=== PATIENT | male | born 1965 | race Caucasian/White ===

== ENCOUNTER 2019-05-29 14:00 | Inpatient (IN) | payer BC, OTHER ==
--- NOTE | 2019-05-29 14:08 | PDOC ---
Rapid Medical Evaluation Chief Complaint: Alcohol intoxication Time Seen by Provider: 05/29/19 14:06 Medical Evaluation: 05/29/19 14:07 I have performed a brief in-person evaluation of this patient. The patient presents with a chief complaint of: request for detox Pertinent physical exam findings:stable and in NAD, non-focal I have ordered the following:labs The patient will proceed to the ED for further evaluation. Discharge Disposition - Discharge Dispostion Condition at time of disposition: Stable - Referrals - Patient Instructions - Post Discharge Activity
[2019-05-29 14:53] LABS: BASO % 0.6 % (0-2.0); EOS % 2.3 % (0-4.5); HEMOGLOBIN 14.9 GM/dL (11.7-16.9); LYMPH % 36.4 % (8-40); MCH 31.7 pg (25.7-33.7); MCHC 33.2 g/dl (32.0-35.9); MEAN CELL VOLUME 95.5 fl (80-96); MEAN PLT VOLUME 9.7 fl (7.5-11.1); MONO % 8.6 % (3.8-10.2); NEUT % 52.1 % (42.8-82.8); PLATELET COUNT 189 K/MM3 (134-434); RBC 4.71 M/mm3 (4.00-5.60); RDW 13.9 % (11.9-15.9); WHITE BLOOD COUNT 5.4 K/mm3 (4.0-10.0)
[2019-05-29 14:57] LABS: PH,URINE 5.5 (5.0-8.0); URINE APPEARANCE CLEAR; URINE BILIRUBIN NEGATIVE (NEGATIVE); URINE COLOR YELLOW; URINE GLUCOSE (UA) NEGATIVE (NEGATIVE); URINE KETONE NEGATIVE (NEGATIVE); URINE LEUK ESTERASE NEGATIVE (NEGATIVE); URINE NITRITE NEGATIVE (NEGATIVE); URINE PROTEIN NEGATIVE (NEGATIVE); URINE UROBILINOGEN 0.2 mg/dL (0.2-1.0)
[2019-05-29 15:13] LABS: COCAINE, UR NEGATIVE ng/ml (CUTOFF=300); METHADONE, UR NEGATIVE ng/ml (CUTOFF=300); OPIATES, URI NEGATIVE ng/ml (CUTOFF=300); PHENCYCLIDINE,URINE NEGATIVE ng/ml (CUTOFF=25); URINE AMPHETAMINES NEGATIVE ng/ml (CUTOFF=500); URINE BARBITURATES NEGATIVE ng/ml (CUTOFF=200); URINE BENZODIAZEPINES NEGATIVE ng/ml (CUTOFF=200)
[2019-05-29] MEDS ORDERED: chlordiazePOXIDE HCL 25 MG CAPSULE PO ONE (15:22)
[2019-05-29] MEDS ORDERED: SODIUM CHLORIDE 1,000 ML IV STA (15:24)
[2019-05-29] MEDS ORDERED: chlordiazePOXIDE HCL 25 MG CAPSULE ONE ×2 (15:28→22:45)
[2019-05-29] MEDS ORDERED: THIAMINE HCL IVPB SCH (15:30)
[2019-05-29] MEDS ORDERED: MULTIVITAMINS (DAILY MVI) TABLET (FP) PO SCH (15:30)
[2019-05-29] MEDS ORDERED: SODIUM CHLORIDE IVPB SCH (15:30)
[2019-05-29] MEDS ORDERED: FOLIC ACID IVPB SCH (15:30)
[2019-05-29] MEDS ORDERED: [UNRECOGNIZED DRUG - OTHER] IVPB SCH (15:30)
--- NOTE | 2019-05-29 15:35 | PDOC ---
History of Present Illness - General Chief Complaint: Alcohol intoxication Stated Complaint: Alcohol intoxication Time Seen by Provider: 05/29/19 14:06 History Source: Patient, Significant Other - History of Present Illness Initial Comments: 05/29/19 15:29 53 yo M PMH of Alcohol abuse and Bipolar II ( on lamictal) presents to ED for Detox. Pt states his last drink was approx 2 hours ago. He states he usually has 1 pint each day for a few weeks. He states he abused alcohol in the past and when he has detoxed he has had seizures. He was sent to [facility] from his psychiatrist , Dr. Trujillo for detox with hopes to go to [facility] for [facility] after detox. Pt feels agitated and has a headache that started within the past hour. he also endorses chest tightness. denies hallucinations. 05/29/19 15:41 Past History - Past Medical History Allergies/Adverse Reactions: Allergies Allergy/AdvReac Type Severity Reaction Status Date / Time No Known Allergies Allergy Verified 05/29/19 14:08 Home Medications: Ambulatory Orders Lamotrigine [Lamictal -] 200 mg PO HS 05/29/19 COPD: No Other medical history: seizure - Immunization History Immunization Up to Date: No - Psycho Social/Smoking Cessation Hx Smoking History: Former smoker Have you smoked in the past 12 months: No Information on smoking cessation initiated: No Hx Alcohol Use: No Drug/Substance Use Hx: No Review of Systems - Review of Systems Constitutional: No: Chills, Fever Respiratory: No: Shortness of Breath Cardiac (ROS): Yes: Chest Tightness. No: Chest Pain, Irregular Heart Rate ABD/GI: No: Constipated, Diarrhea, Nausea Neurological: Yes: Headache *Physical Exam - Vital Signs Last Vital Signs Temp Pulse Resp BP Pulse Ox 97.6 F 75 16 118/74 95 05/29/19 14:04 05/29/19 14:04 05/29/19 14:04 05/29/19 14:04 05/29/19 14:04 - Physical Exam General Appearance: Yes: Nourished, Appropriately Dressed, Intoxicated. No: Apparent Distress HEENT: positive: Other (tongue fasciculations) Respiratory/Chest: positive: Lungs Clear, Normal Breath Sounds. negative: Respiratory Distress Cardiovascular: positive: Regular Rhythm, Regular Rate, S1, S2 Gastrointestinal/Abdominal: positive: Normal Bowel Sounds. negative: Tender, Soft, Distended Integumentary: positive: Normal Color, Dry, Warm ED Treatment Course - LABORATORY CBC & Chemistry Diagram: 05/29/19 14:39 05/29/19 14:39 - ADDITIONAL ORDERS Additional order review: Laboratory Results 05/29/19 05/29/19 05/29/19 14:39 14:39 14:39 Urine Color Yellow Urine Appearance Clear Urine pH 5.5 Ur Specific [place] 1.006 L Urine Protein Negative Urine Glucose (UA) Negative Urine Ketones Negative Urine Blood Negative Urine Nitrite Negative Urine Bilirubin Negative Urine Urobilinogen 0.2 Ur Leukocyte Esterase Negative Opiates Screen Negative Methadone Screen Negative Barbiturate Screen Negative Phencyclidine Screen Negative Ur Amphetamines Screen Negative MDMA (Ecstasy) Screen Negative Benzodiazepines Screen Negative Cocaine Screen Negative U Marijuana (THC) Screen Negative Alcohol, Quantitative 282.6 H 05/29/19 14:39 RBC 4.71 MCV 95.5 MCHC 33.2 RDW 13.9 MPV 9.7 Neutrophils % 52.1 Lymphocytes % 36.4 Monocytes % 8.6 Eosinophils % 2.3 Basophils % 0.6 - Medications Given in the ED: ED Medications Discontinued Medications Generic Name Dose Route Start Last Admin Trade Name Freq PRN Reason Stop Dose Admin Sodium Chloride 1,000 mls @ 1,000 mls/hr 05/29/19 15:24 05/29/19 15:27 Normal Saline - IV 05/29/19 16:23 1,000 mls/hr ASDIR STA Administration Medical Decision Making - Medical Decision Making 05/29/19 15:50 53 yo M presenting for alcohol detox -[facility] -Librium 500 PO -IV fluids, Mg, thiamine, folate, multivitamin -CBC, CMP -Utox, Alcohol level 05/29/19 16:31 - will start mod librium protocol for detox Discharge - Discharge Information Condition: Stable - Follow up/Referral Referrals: Erendira Hurst [Primary Care Provider] - - Patient Discharge Instructions - Post Discharge Activity
[2019-05-29 15:52] LABS: ALBUMIN 4.1 g/dl (3.4-5.0); BILIRUBIN,TOTAL 0.4 mg/dL (0.2-1); CREATININE 0.7 mg/dL (0.55-1.3); POTASSIUM 5.1 mmol/L (3.5-5.1); TOT PROT 7.3 g/dl (6.4-8.2)
[2019-05-29] MEDS ORDERED: chlordiazePOXIDE HCL 10 MG CAPSULE PO PRN (16:15)
[2019-05-29] MEDS ORDERED: THIAMINE HCL 100 MG TABLET (FP) PO ONE (16:18)
[2019-05-29] MEDS ORDERED: FOLIC ACID 1 MG TABLET (FP) PO ONE (16:18)
[2019-05-29] MEDS ORDERED: FOLIC ACID INJECTION - 1 MG, THIAMINE HCL 100 MG, MULTIVIT INJECTION ADULT 10 ML in SOD... IVPB ONE ×2 (16:30→20:47)
--- NOTE | 2019-05-29 18:32 | PDOC ---
Documentation entered by Srinath Starr SCRIBE, acting as scribe for Darrion Silver MD. Darrion Silver MD: This documentation has been prepared by the Matty hager Nirvannie, SCRIBE, under my direction and personally reviewed by me in its entirety. I confirm that the documentation accurately reflects all work, treatment, procedures, and medical decision making performed by me. Attending Attestation - Resident Resident Name: Doug - ED Attending Attestation I have performed the following: I have examined & evaluated the patient, The case was reviewed & discussed with the resident, I agree w/resident's findings & plan, Exceptions are as noted - HPI HPI: 05/29/19 15:47 The patient is a 53 year old male, with a significant past medical history of alcohol abuse c/b alcohol withdrawal seizures, and bipolar disorder, who presents to the emergency department for alcohol detox. As per patient, he was advised by his PCP to report to the ED for detox. As per patient he normally drinks a pint a day and his last drink was 2 hours ago. He states he feels shaky at this time. He denies any SI or HI. He denies AH/VH. He denies any recent fevers, chills, headache or dizziness. He denies any recent nausea, vomiting, diarrhea or constipation. He denies any recent chest pain or shortness of breath. He denies any recent dysuria, frequency, urgency or hematuria. Allergies: NKDA Primary Care Physician: Dr. Hurst - Physicial Exam PE: 05/29/19 17:50 agree with resident exam - Medical Decision Making 05/29/19 17:52 53yo M hx etoh abuse, bipolar d/o presents to the ED for detox Pt reporting feeling shaky, had mild tongue fasiculations and was given librium 50mg Last drink 3 hours ago [facility] Labs obtained in case pt requires admission for etoh withdrawal prior to availability of a bed at detox Heart Score/ECG Review #1 05/29/19 18:31 EKG read and int by me: NSR, rate 70, artifact in lead V3, otherwise, no LUCRECIA or TWI
--- NOTE | 2019-05-29 21:33 | HP ---
CHIEF COMPLAINT: intoxication/ withdrawal PCP: Dr Sanders HISTORY OF PRESENT ILLNESS: 53 year old male with past medical history of bipolar disorder (on lamotrigine 200mg HS) and alcohol abuse disorder presents to the ED for alcohol detoxification. Last drink was around 12 pm but does not remember how much he drank today (usually drink a pint of alcohol daily). Pt was sober for 2.5 years and attributes drinking again due to his mental health. Denies any recent traumatic events that provoked his relapse. Pt has difficulty sleeping, loss of interest, guilty consciousness, decreased energy, increased appetite, suicidal thoughts (no plan and no intent) for years. However, pt currently does not have any suicidal thoughts, plan or intent. Pt hopes to have go for inpatient psych at [facility] after completing his detoxification course. Pt endorses headaches, heart palpitations, mild shortness of breath and burning pain in his lower extremities. Denies tremors, visual/auditory hallucinations, loss of consciousness, head trauma, chest pain, dizziness, nausea, vomiting and diarrhea. ER course was notable for: (1) CBC unremarkable, CMP remarkable for AST 61, ALT 68 (2) UA neg, Utox positive for alcohol level 282.6 (3)librium protocol started Recent Travel: denies PAST MEDICAL HISTORY: none PSYCH HISTORY: bipolar II PAST SURGICAL HISTORY: none Social History: Smoking:Smoked 1 pack a day since the age 14 (for 39 years). Quit 2 months ago Alcohol: as above Drugs: denies Allergies No Known Allergies Allergy (Verified 05/29/19 14:08) HOME MEDICATIONS: Home Medications Medication Instructions Recorded Lamotrigine [Lamictal -] 200 mg PO HS 05/29/19 REVIEW OF SYSTEMS CONSTITUTIONAL: Absent: fever, chills, diaphoresis, generalized weakness, malaise, loss of appetite, weight change HEENT: Absent: rhinorrhea, nasal congestion, throat pain, throat swelling, difficulty swallowing, mouth swelling, ear pain, eye pain, visual changes CARDIOVASCULAR: Absent: chest pain, syncope, palpitations, irregular heart rate, lightheadedness , peripheral edema RESPIRATORY: Absent: cough, shortness of breath, dyspnea with exertion, orthopnea, wheezing, stridor, hemoptysis GASTROINTESTINAL: Absent: abdominal pain, abdominal distension, nausea, vomiting, diarrhea, constipation, melena, hematochezia GENITOURINARY: Absent: dysuria, frequency, urgency, hesitancy, hematuria, flank pain, genital pain MUSCULOSKELETAL: Absent: myalgia, arthralgia, joint swelling, back pain, neck pain SKIN: Absent: rash, itching, pallor HEMATOLOGIC/IMMUNOLOGIC: Absent: easy bleeding, easy bruising, lymphadenopathy, frequent infections ENDOCRINE: Absent: unexplained weight gain, unexplained weight loss, heat intolerance, cold intolerance NEUROLOGIC: Absent: headache, focal weakness or paresthesias, dizziness, unsteady gait, seizure, mental status changes, bladder or bowel incontinence PSYCHIATRIC: depressed mood Absent: anxiety, suicidal or homicidal ideation, hallucinations. PHYSICAL EXAMINATION Vital Signs - 24 hr 05/29/19 05/29/19 14:04 19:02 Temperature 97.6 F Pulse Rate 75 Pulse Rate [ 88 Right Radial] Respiratory 16 18 Rate Blood Pressure 118/74 Blood Pressure 100/45 L [Right Arm] O2 Sat by Pulse 95 97 Oximetry (%) GENERAL: Awake, alert, and fully oriented, no acute distress. HEAD: Normal with no signs of trauma. EYES: Pupils equal, round and reactive to light, extraocular movements intact, sclera anicteric, conjunctiva clear. No lid lag. EARS, NOSE, THROAT: oropharynx clear without exudates. Moist mucous membranes. NECK: Normal range of motion, supple without lymphadenopathy, JVD, or masses. LUNGS: Breath sounds equal, clear to auscultation bilaterally. No wheezes, and no crackles. No accessory muscle use. HEART: Regular rate and rhythm, normal S1 and S2 without murmur, rub or gallop. ABDOMEN: Soft, nontender, not distended, normoactive bowel sounds, no guarding, no rebound, no masses. No hepatomegaly or splenomegaly. MUSCULOSKELETAL: Normal range of motion at all joints. No bony deformities or tenderness. No CVA tenderness. UPPER EXTREMITIES: 2+ pulses, warm, well-perfused. No cyanosis. No clubbing. No peripheral edema. LOWER EXTREMITIES: 2+ pulses, warm, well-perfused. No calf tenderness. No peripheral edema. NEUROLOGICAL: Cranial nerves II-XII intact. Normal speech. motor 5/5 in all muscle groups and sensation intact. No tremors PSYCHIATRIC: Cooperative. Good eye contact. Appropriate mood and affect. SKIN: Warm, dry, normal turgor, seborrheic keratosis on back. Laboratory Results - last 24 hr 05/29/19 05/29/19 05/29/19 14:39 14:39 14:39 WBC 5.4 RBC 4.71 Hgb 14.9 Hct 45.0 MCV 95.5 MCH 31.7 MCHC 33.2 RDW 13.9 Plt Count 189 MPV 9.7 Absolute Neuts (auto) 2.8 Neutrophils % 52.1 Lymphocytes % 36.4 Monocytes % 8.6 Eosinophils % 2.3 Basophils % 0.6 Nucleated RBC % 0 Sodium Potassium Chloride Carbon Dioxide Anion Gap BUN Creatinine Est GFR (CKD-EPI)AfAm Est GFR (CKD-EPI)NonAf Random Glucose Calcium Total Bilirubin AST ALT Alkaline Phosphatase Total Protein Albumin Urine Color Urine Appearance Urine pH Ur Specific [place] Urine Protein Urine Glucose (UA) Urine Ketones Urine Blood Urine Nitrite Urine Bilirubin Urine Urobilinogen Ur Leukocyte Esterase Opiates Screen Methadone Screen Acetaminophen <2.0 Barbiturate Screen Phencyclidine Screen Ur Amphetamines Screen MDMA (Ecstasy) Screen Benzodiazepines Screen Cocaine Screen U Marijuana (THC) Screen Alcohol, Quantitative 282.6 H 05/29/19 05/29/19 05/29/19 14:39 14:39 14:39 WBC RBC Hgb Hct MCV MCH MCHC RDW Plt Count MPV Absolute Neuts (auto) Neutrophils % Lymphocytes % Monocytes % Eosinophils % Basophils % Nucleated RBC % Sodium 142 Potassium 5.1 Chloride 110 H Carbon Dioxide 25 Anion Gap 7 L BUN 12.0 Creatinine 0.7 Est GFR (CKD-EPI)AfAm 124.00 Est GFR (CKD-EPI)NonAf 106.99 Random Glucose 80 Calcium 9.0 Total Bilirubin 0.4 AST 61 H ALT 68 H Alkaline Phosphatase 69 Total Protein 7.3 Albumin 4.1 Urine Color Yellow Urine Appearance Clear Urine pH 5.5 Ur Specific [place] 1.006 L Urine Protein Negative Urine Glucose (UA) Negative Urine Ketones Negative Urine Blood Negative Urine Nitrite Negative Urine Bilirubin Negative Urine Urobilinogen 0.2 Ur Leukocyte Esterase Negative Opiates Screen Negative Methadone Screen Negative Acetaminophen Barbiturate Screen Negative Phencyclidine Screen Negative Ur Amphetamines Screen Negative MDMA (Ecstasy) Screen Negative Benzodiazepines Screen Negative Cocaine Screen Negative U Marijuana (THC) Screen Negative Alcohol, Quantitative ASSESSMENT/PLAN: 53 year old male with past medical history of bipolar disorder (on lamotrigine 200mg HS) and alcohol abuse disorder presents to the ED for alcohol detoxification. admitted for alcohol withdrawal. Alcohol intoxication now in withdrawal Utox positive for alcohol currently on librium protocol Banana bag in ED supplemental thiamine, folate, MTVs Fall and seizure precautions HOB elevated for asp precautions monitor vital signs NPO for risk of aspiration f/u labs including INR Abnormal LFTS most likely from alcohol AST 61 ALT 68 monitor with f/u labs if trending up, consider abdominal US Bipolar II resume lamictal DVT SCDs Visit type - Emergency Visit Emergency Visit: Yes ED Registration Date: 05/29/19 Care time: The patient presented to the Emergency Department on the above date and was hospitalized for further evaluation of their emergent condition. - New Patient This patient is new to me today: Yes Date on this admission: 05/30/19 - Critical Care Critical Care patient: No ATTENDING PHYSICIAN STATEMENT I saw and evaluated the patient. I reviewed the resident's note and discussed the case with the resident. I agree with the resident's findings and plan as documented. SUBJECTIVE: OBJECTIVE: ASSESSMENT AND PLAN:
--- NOTE | 2019-05-29 21:50 | PN ---
Teaching Attending Note Name of Resident: Edel Flores ATTENDING PHYSICIAN STATEMENT I saw and evaluated the patient. I reviewed the resident's note and discussed the case with the resident. I agree with the resident's findings and plan as documented. SUBJECTIVE: 53-year-old man with a past history of EtOH abuse, bipolar disorder, alcohol withdrawal seizure disorder presented to the emergency department for detox. His last drink was a few hours prior to presentation to the emergency room. Patient says he drinks about 2 pints of liquor a day. Denied any acute illicit drug use. Patient endorsed that he feels agitated and he has a headache.In the emergency room patient was found to be intoxicated. OBJECTIVE: Last Vital Signs Temp Pulse Resp BP Pulse Ox 97.6 F 88 18 100/45 L 97 05/29/19 14:04 05/29/19 19:02 05/29/19 19:02 05/29/19 19:02 05/29/19 19:02 GENERAL: Disheveled, well nourished. Awake and alert. No acute distress. HEENT: Normocephalic, atraumatic. PERRLA, EOMI. No conjunctival pallor. Sclera are non- icteric. Moist mucous membranes. Oropharynx is clear. NECK: Supple. Full ROM. No JVD. Carotid pulses 2+ and symmetric, without bruits. No thyromegaly. No lymphadenopathy. CARDIOVASCULAR: Regular rate and rhythm. No murmurs, rubs, or gallops. Distal pulses are 2+ and symmetric. PULMONARY: No evidence of respiratory distress. Lungs clear to auscultation bilaterally. No wheezing, rales or rhonchi. ABDOMINAL: Soft. Non-tender. Non-distended. No rebound or guarding. No organomegaly. Normoactive bowel sounds. MUSCULOSKELETAL Normal range of motion at all joints. No bony deformities or tenderness. No CVA tenderness. EXTREMITIES: No cyanosis. No clubbing. No edema. No calf tenderness. SKIN: Warm and dry. Normal capillary refill. No rashes. No jaundice. PSYCHIATRIC: Cooperative. Good eye contact. Appropriate mood and affect. Abnormal Lab Results 05/29/19 05/29/19 05/29/19 14:39 14:39 14:39 Chloride 110 H Anion Gap 7 L AST 61 H ALT 68 H Ur Specific [place] 1.006 L Alcohol, Quantitative 282.6 H Imaging studies reviewed ASSESSMENT AND PLAN: 53-year-old male with acute EtOH intoxication, anticipating EtOH withdrawal Admit to MedSurg IV fluid hydration Banana bag Thiamine, folate supplementation Librium detox protocol Urine toxicology screen Check magnesium level Monitor electrolytes closely and replete PRN We will need detox upon discharge DVT prophylaxisheparin subcutaneously
[2019-05-29 22:28] LABS: MAGNESIUM 2.2 mg/dL (1.8-2.4); PHOSPHOROUS 3.7 mg/dL (2.5-4.9)
[2019-05-29] MEDS: chlordiazePOXIDE HCL 25 MG CAPSULE PO SCH (22:54)
[2019-05-30 05:11] VITALS: BMI 28.3
[2019-05-30] MEDS: HEPARIN NA (PORCINE) 5,000 UNITS/ML 1ML VIAL SQ SCH ×3 (06:10→21:19)
[2019-05-30] MEDS: chlordiazePOXIDE HCL 25 MG CAPSULE PO SCH ×3 (06:10→21:16)
[2019-05-30 07:13] LABS: BASO % 0.7 % (0-2.0); EOS % 2.5 % (0-4.5); HEMATOCRIT 37.2 % (35.4-49); HEMOGLOBIN 12.6 GM/dL (11.7-16.9); LYMPH % 26.3 % (8-40); MCH 32.2 pg (25.7-33.7); MCHC 33.9 g/dl (32.0-35.9); MEAN CELL VOLUME 94.9 fl (80-96); MEAN PLT VOLUME 9.1 fl (7.5-11.1); MONO % 10.1 % (3.8-10.2); NEUT % 60.4 % (42.8-82.8); PLATELET COUNT 154 K/MM3 (134-434); RBC 3.92 M/mm3 (4.00-5.60); RDW 14.1 % (11.9-15.9); WHITE BLOOD COUNT 5.6 K/mm3 (4.0-10.0)
[2019-05-30 07:30] LABS: INR 0.96 (0.83-1.09); PROTHROMBIN TIME (PATIENT) 11.3 SEC (9.7-13.0)
[2019-05-30 07:41] LABS: ALBUMIN 3.2 g/dl (3.4-5.0); BILIRUBIN,TOTAL 0.6 mg/dL (0.2-1); BLOOD UREA NITROGEN 17.9 mg/dL (7-18); CALCIUM 8.2 mg/dL (8.5-10.1); CREATININE 0.8 mg/dL (0.55-1.3); MAGNESIUM 1.9 mg/dL (1.8-2.4); PHOSPHOROUS 2.6 mg/dL (2.5-4.9); POTASSIUM 4.2 mmol/L (3.5-5.1); TOT PROT 5.6 g/dl (6.4-8.2)
[2019-05-30] MEDS: THIAMINE HCL 100 MG TABLET (FP) PO SCH (09:10)
[2019-05-30] MEDS: MULTIVITAMINS (DAILY MVI) TABLET (FP) PO SCH (09:10)
[2019-05-30] MEDS: FOLIC ACID 1 MG TABLET (FP) PO SCH (09:10)
[2019-05-30] MEDS ORDERED: THIAMINE HCL 100 MG TABLET (FP) PO SCH (10:00)
[2019-05-30] MEDS ORDERED: chlordiazePOXIDE 5 MG CAPSULE ONE (11:10)
[2019-05-30] MEDS: lamoTRIgine 25 MG TABLET PO SCH (11:11)
--- NOTE | 2019-05-30 13:52 | EKG ---
Test Reason : Blood Pressure : / mmHG Vent. Rate : 070 BPM Atrial Rate : 070 BPM P-R Int : 172 ms QRS Dur : 094 ms QT Int : 382 ms P-R-T Axes : 026 033 040 degrees QTc Int : 412 ms NORMAL SINUS RHYTHM WHEN COMPARED WITH ECG OF 09-NOV-2008 10:02, NO SIGNIFICANT CHANGE WAS FOUND Confirmed by ZHANNA ARELLANO MD ([id number]) on 05/30/2019 1:51:59 PM Referred By: Confirmed By:ZHANNA ARELLANO MD
--- NOTE | 2019-05-30 15:33 | PN ---
Physical Exam: SUBJECTIVE: Patient seen and examined in the morning. No acute events overnight. Has mild headache. No complaints of chest pain, shortness of breath, abdominal pain, nausea, vomiting, diarrhea. OBJECTIVE: Vital Signs Period Temp Pulse Resp BP Sys/Man Pulse Ox Last 24 Hr 97.7 F-98.3 F 72-88 12-20 97-135/45-80 95-97 GENERAL: The patient is awake, alert, and fully oriented, in no acute distress. HEAD: Normal with no signs of trauma. EYES: PERRL, extraocular movements intact, sclera anicteric, conjunctiva clear. LUNGS: Breath sounds equal, clear to auscultation bilaterally. HEART: Regular rate and rhythm, S1, S2 without murmur, rub or gallop. ABDOMEN: Soft, non-distended, normoactive bowel sounds. No rebound tenderness. EXTREMITIES: 2+ pulses, warm, well-perfused, no edema. NEUROLOGICAL: Cranial nerves II through XII grossly intact. Normal speech. PSYCH: Depressed mood, normal affect. CIWA Score of 0. Laboratory Results - last 24 hr 05/29/19 05/29/19 05/29/19 14:39 14:39 14:39 WBC RBC Hgb Hct MCV MCH MCHC RDW Plt Count MPV Absolute Neuts (auto) Neutrophils % Lymphocytes % Monocytes % Eosinophils % Basophils % Nucleated RBC % PT with INR INR Sodium 142 Potassium 5.1 Chloride 110 H Carbon Dioxide 25 Anion Gap 7 L BUN 12.0 Creatinine 0.7 Est GFR (CKD-EPI)AfAm 124.00 Est GFR (CKD-EPI)NonAf 106.99 Random Glucose 80 Calcium 9.0 Phosphorus 3.7 Magnesium 2.2 Total Bilirubin 0.4 AST 61 H ALT 68 H Alkaline Phosphatase 69 Total Protein 7.3 Albumin 4.1 Acetaminophen <2.0 Alcohol, Quantitative 282.6 H 05/30/19 05/30/19 05/30/19 06:50 06:50 06:50 WBC 5.6 RBC 3.92 L Hgb 12.6 Hct 37.2 D MCV 94.9 MCH 32.2 MCHC 33.9 RDW 14.1 Plt Count 154 MPV 9.1 Absolute Neuts (auto) 3.4 Neutrophils % 60.4 Lymphocytes % 26.3 D Monocytes % 10.1 Eosinophils % 2.5 Basophils % 0.7 Nucleated RBC % 0 PT with INR 11.30 INR 0.96 Sodium 143 Potassium 4.2 Chloride 109 H Carbon Dioxide 29 Anion Gap 5 L BUN 17.9 Creatinine 0.8 Est GFR (CKD-EPI)AfAm 117.38 Est GFR (CKD-EPI)NonAf 101.27 Random Glucose 92 Calcium 8.2 L Phosphorus 2.6 Magnesium 1.9 Total Bilirubin 0.6 AST 30 ALT 48 Alkaline Phosphatase 61 Total Protein 5.6 L Albumin 3.2 L Acetaminophen Alcohol, Quantitative Active Medications Generic Name Dose Route Start Last Admin Trade Name Freq PRN Reason Stop Dose Admin Chlordiazepoxide HCl 10 mg 06/01/19 00:00 Librium - PO 06/01/19 23:59 Q12H PRN Signs/symptoms of Withdrawal Chlordiazepoxide HCl 10 mg 05/29/19 16:15 05/30/19 11:11 Librium - PO 05/31/19 23:59 10 mg Q8H PRN Administration Signs/symptoms of Withdrawal Chlordiazepoxide HCl 25 mg 05/29/19 21:00 05/30/19 12:52 Librium - PO 05/30/19 21:01 25 mg Q8H LIZETTE Administration Chlordiazepoxide HCl 15 mg 05/31/19 05:00 Librium - PO 05/31/19 21:01 Q8H LIZETTE Chlordiazepoxide HCl 10 mg 06/01/19 05:00 Librium - PO 06/01/19 21:01 Q8H LIZETTE Chlordiazepoxide HCl 10 mg 06/02/19 05:00 Librium - PO 06/02/19 05:01 ONCE ONE Folic Acid 1 mg 05/30/19 10:00 05/30/19 09:10 Folic Acid - PO 1 mg DAILY LIZETTE Administration Heparin Sodium (Porcine) 5,000 unit 05/30/19 06:00 05/30/19 14:10 Heparin - SQ Not Given TID LIZETTE Lamotrigine 200 mg 05/30/19 22:00 Lamictal - PO HS LIZETTE Lamotrigine 50 mg 05/30/19 10:00 05/30/19 11:11 Lamictal - PO 50 mg DAILY LIZETTE Administration Multivitamins/Minerals/Vitamin C 1 tab 05/30/19 10:00 05/30/19 09:10 Tab-A-Vit - PO 1 tab DAILY LIZETTE Administration Thiamine HCl 100 mg 05/30/19 10:00 05/30/19 09:10 Vitamin B1 - PO 100 mg DAILY LIZETTE Administration ASSESSMENT/PLAN: 53 M with PMH of EtOH abuse and withdrawal seizures who presents today for detox. 1) Alcohol Withdrawal -Patient has been heavily drinking for the past 30 days, with last drink being day of admission. -Librium protocol initiated -Folic acid 1 mg PO Daily -Thiamine 100 mg PO Daily -Trend magnesium levels 2) Bipolar Disorder -Lamotrigine 50 mg PO in the morning -Lamotrigine 200 mg PO in the evening -Will go to [facility] upon discharge for continue psychiatric care. DVT: Heparin 5000 unit SQ TID F: No fluids E: Monitor BMP N: Regular Diet Dispo: Will stay in Medicine floor, per safety concerns in [facility] and bed availability in detox unit. Visit type - Emergency Visit Emergency Visit: Yes ED Registration Date: 05/29/19 Care time: The patient presented to the Emergency Department on the above date and was hospitalized for further evaluation of their emergent condition. - New Patient This patient is new to me today: Yes Date on this admission: 05/30/19 - Critical Care Critical Care patient: No ATTENDING PHYSICIAN STATEMENT I saw and evaluated the patient. I reviewed the resident's note and discussed the case with the resident. I agree with the resident's findings and plan as documented. SUBJECTIVE: OBJECTIVE: ASSESSMENT AND PLAN:
[2019-05-30] MEDS ORDERED: FOLIC ACID 1 MG TABLET (FP) PO ONE (16:18)
--- NOTE | 2019-05-30 18:30 | PN ---
Teaching Attending Note Name of Resident: Suraj Sellers ATTENDING PHYSICIAN STATEMENT I saw and evaluated the patient. I reviewed the resident's note and discussed the case with the resident. I agree with the resident's findings and plan as documented. SUBJECTIVE: seen in am , has diarrhea ( one episode) started to get sweaty , feels anxious. feels depressed but no SI or homicidal ideation OBJECTIVE: NAD, calm . No Nystagmus CV: RRR, no MRG Lungs: CTAB Abd: soft, NT, ND , NL BS Ext : No edema ASSESSMENT AND PLAN: 53 y/o man with h/o bipolar, ETOH abuse, Withdrawal seizures who presented with alcohol intoxicationand started having withdrawal sx 1- ETOH withdrawal: - IVF - Librium protocol - monitor electrolytes - cont thiamine and folate - No signs of Wernicke's - [facility] 2- h/o Bipolar : depression now - no SI - cont lamictal - plan for f/u with his psych at [facility]. - partner already contacted his psychiatrist 3- DVT px : heprain sq
[2019-05-30] MEDS ORDERED: PT OWN MED DRAWER 7, Y5N ONE (21:00)
[2019-05-30] MEDS: lamoTRIgine 100 MG TABLET (FP) PO SCH (21:15)
[2019-05-31] MEDS: chlordiazePOXIDE 5 MG CAPSULE PO SCH ×3 (05:24→21:26)
[2019-05-31] MEDS: HEPARIN NA (PORCINE) 5,000 UNITS/ML 1ML VIAL SQ SCH ×3 (05:25→21:25)
[2019-05-31] MEDS: SODIUM CHLORIDE 1,000 ML IV SCH ×2 (05:25→20:43)
[2019-05-31] MEDS ORDERED: PT OWN MED DRAWER 7, Y5N ONE ×2 (06:22→21:02)
[2019-05-31 09:16] LABS: BASO % 0.8 % (0-2.0); EOS % 3.6 % (0-4.5); HEMATOCRIT 37.5 % (35.4-49); LYMPH % 24.5 % (8-40); MCH 32.7 pg (25.7-33.7); MCHC 34.6 g/dl (32.0-35.9); MEAN CELL VOLUME 94.3 fl (80-96); MEAN PLT VOLUME 9.7 fl (7.5-11.1); MONO % 11.9 % (3.8-10.2); NEUT % 59.2 % (42.8-82.8); PLATELET COUNT 160 K/MM3 (134-434); RBC 3.98 M/mm3 (4.00-5.60); RDW 13.6 % (11.9-15.9); WHITE BLOOD COUNT 4.1 K/mm3 (4.0-10.0)
[2019-05-31 09:41] LABS: BLOOD UREA NITROGEN 11.7 mg/dL (7-18); CALCIUM 8.4 mg/dL (8.5-10.1); CREATININE 0.7 mg/dL (0.55-1.3); POTASSIUM 4.1 mmol/L (3.5-5.1)
[2019-05-31 09:48] LABS: PHOSPHOROUS 2.2 mg/dL (2.5-4.9)
[2019-05-31] MEDS: THIAMINE HCL 100 MG TABLET (FP) PO SCH (10:08)
[2019-05-31] MEDS: FOLIC ACID 1 MG TABLET (FP) PO SCH (10:08)
[2019-05-31] MEDS: MULTIVITAMINS (DAILY MVI) TABLET (FP) PO SCH (10:08)
[2019-05-31] MEDS: lamoTRIgine 25 MG TABLET PO SCH (10:08)
--- NOTE | 2019-05-31 12:03 | PN ---
Physical Exam: SUBJECTIVE: Patient seen and examined in the morning. No acute events overnight. Patient complains of increased anxiety, worse headache, and mild abdominal pain with diarrhea. No complaints of chest pain, shortness of breath, nausea, vomiting. OBJECTIVE: Vital Signs Period Temp Pulse Resp BP Sys/Man Pulse Ox Last 24 Hr 97.3 F-97.6 F 69-73 18-19 122-125/71-76 96 GENERAL: The patient is awake, alert, and fully oriented, in no acute distress. HEAD: Normal with no signs of trauma. EYES: PERRL, extraocular movements intact, sclera anicteric, conjunctiva clear. NECK: Trachea midline, full range of motion, supple. LUNGS: Breath sounds equal, clear to auscultation bilaterally, no wheezes or crackles. HEART: Regular rate and rhythm, S1, S2 without murmur, rub or gallop. ABDOMEN:Tender to palpation in LLQ. Non tender in all other regions. Rectal exam negative for blood. Normal sphincter tone, no external hemorrhoids or internal masses felt. EXTREMITIES: 2+ pulses, warm, well-perfused, no edema. NEUROLOGICAL: Cranial nerves II through XII grossly intact. Normal speech. PSYCH: Depressed mood, no thoughts of harming self or others. Laboratory Results - last 24 hr 05/31/19 05/31/19 05/31/19 06:00 07:30 08:20 WBC 4.1 RBC 3.98 L Hgb 13.0 Hct 37.5 MCV 94.3 MCH 32.7 MCHC 34.6 RDW 13.6 Plt Count 160 MPV 9.7 Absolute Neuts (auto) 2.4 Neutrophils % 59.2 Lymphocytes % 24.5 Monocytes % 11.9 H Eosinophils % 3.6 Basophils % 0.8 Nucleated RBC % 0 Sodium 139 Potassium 4.1 Chloride 110 H Carbon Dioxide 26 Anion Gap 4 L BUN 11.7 Creatinine 0.7 Est GFR (CKD-EPI)AfAm 124.00 Est GFR (CKD-EPI)NonAf 106.99 Random Glucose 102 Calcium 8.4 L Phosphorus 2.2 L Magnesium 2.0 Active Medications Generic Name Dose Route Start Last Admin Trade Name Freq PRN Reason Stop Dose Admin Chlordiazepoxide HCl 10 mg 06/01/19 00:00 Librium - PO 06/01/19 23:59 Q12H PRN Signs/symptoms of Withdrawal Chlordiazepoxide HCl 10 mg 05/29/19 16:15 05/30/19 11:11 Librium - PO 05/31/19 23:59 10 mg Q8H PRN Administration Signs/symptoms of Withdrawal Chlordiazepoxide HCl 15 mg 05/31/19 05:00 05/31/19 05:24 Librium - PO 05/31/19 21:01 15 mg Q8H LIZETTE Administration Chlordiazepoxide HCl 10 mg 06/01/19 05:00 Librium - PO 06/01/19 21:01 Q8H LIZETTE Chlordiazepoxide HCl 10 mg 06/02/19 05:00 Librium - PO 06/02/19 05:01 ONCE ONE Folic Acid 1 mg 05/30/19 10:00 05/31/19 10:08 Folic Acid - PO 1 mg DAILY LIZETTE Administration Heparin Sodium (Porcine) 5,000 unit 05/30/19 06:00 05/31/19 05:25 Heparin - SQ 5,000 unit TID LIZETTE Administration Sodium Chloride 1,000 mls @ 83 mls/hr 05/30/19 18:30 05/31/19 05:25 Normal Saline - IV 83 mls/hr ASDIR LIZETTE Administration Lamotrigine 200 mg 05/30/19 22:00 05/30/19 21:15 Lamictal - PO 200 mg HS LIZETTE Administration Lamotrigine 50 mg 05/30/19 10:00 05/31/19 10:08 Lamictal - PO 50 mg DAILY LIZETTE Administration Multivitamins/Minerals/Vitamin C 1 tab 05/30/19 10:00 05/31/19 10:08 Tab-A-Vit - PO 1 tab DAILY LIZETTE Administration Thiamine HCl 100 mg 05/30/19 10:00 05/31/19 10:08 Vitamin B1 - PO 100 mg DAILY LIZETTE Administration ASSESSMENT/PLAN: 53 M with PMH of EtOH abuse and withdrawal seizures who presents today for detox. 1) Alcohol Withdrawal -Patient has been heavily drinking for the past 30 days, with last drink being day of admission. -Librium protocol initiated -Folic acid 1 mg PO Daily -Thiamine 100 mg PO Daily -Trend magnesium levels 2) Diarrhea and Abdominal Pain -Likely due to Alcohol withdrawal -Rectal exam negative. -CTA/P w/Contrast -Stool Occult Blood 2) Bipolar Disorder -Lamotrigine 50 mg PO in the morning -Lamotrigine 200 mg PO in the evening -Will go to [facility] upon discharge for continue psychiatric care. Can call his psychiatrist at [phone]. DVT: Heparin 5000 unit SQ TID F: NS @ 83 ml/hr E: Monitor BMP N: Regular Diet Dispo: Will stay in Medicine floor, per safety concerns in [facility] and bed availability in detox unit. Visit type - Emergency Visit Emergency Visit: Yes ED Registration Date: 05/29/19 Care time: The patient presented to the Emergency Department on the above date and was hospitalized for further evaluation of their emergent condition. - New Patient This patient is new to me today: No - Critical Care Critical Care patient: No ATTENDING PHYSICIAN STATEMENT I saw and evaluated the patient. I reviewed the resident's note and discussed the case with the resident. I agree with the resident's findings and plan as documented. SUBJECTIVE: OBJECTIVE: ASSESSMENT AND PLAN:
[2019-05-31] MEDS ORDERED: NAPH,MB-DB/K PH,MBDB POWDER PACKET PO ONE (13:29)
--- NOTE | 2019-05-31 13:34 | PN ---
Teaching Attending Note Name of Resident: Suraj Sellers ATTENDING PHYSICIAN STATEMENT I saw and evaluated the patient. I reviewed the resident's note and discussed the case with the resident. I agree with the resident's findings and plan as documented. SUBJECTIVE: No fever or chills. has GONZALEZ , and anxiety. no abd pain, reports diarrhea. reported black BM OBJECTIVE: NAD. Tearful CV: RRR, no MRG Lungs: CTAB Abd: soft, TTP in LLQ. no rebound tenderness or guarding. Ext : No edema ASSESSMENT AND PLAN: 53 y/o man with h/o bipolar, ETOH abuse, Withdrawal seizures who presented with alcohol intoxicationand started having withdrawal sx 1- ETOH withdrawal: - IVF - Librium protocol - replete Phos - cont thiamine and folate 2- Reported black stool. ? melena. Rectal exam to be performed by resident diarrhea could be partt of withdrawal syndrome due to LLQ tenderness along with the diarrhea, will get CT of abd /pelvis 3- h/o Bipolar: depression now. - cont lamictal - plan for f/u with his psych at [facility]. 4- DVT px : heprain sq
[2019-05-31] MEDS ORDERED: ACETAMINOPHEN 500 MG TABLET (FP) PO ONE (14:52)
[2019-05-31] MEDS: lamoTRIgine 100 MG TABLET (FP) PO SCH (21:26)
[2019-06-01] MEDS ORDERED: chlordiazePOXIDE HCL 10 MG CAPSULE PO PRN
[2019-06-01] MEDS ORDERED: chlordiazePOXIDE 5 MG CAPSULE ONE ×3 (04:40→21:02)
[2019-06-01] MEDS: chlordiazePOXIDE HCL 10 MG CAPSULE PO SCH ×3 (05:25→21:14)
[2019-06-01] MEDS: HEPARIN NA (PORCINE) 5,000 UNITS/ML 1ML VIAL SQ SCH ×3 (05:25→21:14)
[2019-06-01 08:09] LABS: BLOOD UREA NITROGEN 12.2 mg/dL (7-18); CALCIUM 8.1 mg/dL (8.5-10.1); CREATININE 0.8 mg/dL (0.55-1.3); MAGNESIUM 2.4 mg/dL (1.8-2.4); PHOSPHOROUS 2.8 mg/dL (2.5-4.9); POTASSIUM 4.3 mmol/L (3.5-5.1)
[2019-06-01] MEDS ORDERED: NEOMYCIN/POLYMYXIN/HC TOPICAL CREAM 7.5 GM TUBE TP SCH (10:27)
[2019-06-01] MEDS: lamoTRIgine 25 MG TABLET PO SCH (10:30)
[2019-06-01] MEDS: FOLIC ACID 1 MG TABLET (FP) PO SCH (10:31)
[2019-06-01] MEDS: THIAMINE HCL 100 MG TABLET (FP) PO SCH (10:31)
[2019-06-01] MEDS: MULTIVITAMINS (DAILY MVI) TABLET (FP) PO SCH (10:31)
[2019-06-01] MEDS: HYDROCORTISONE 1% TOPICAL CREAM 30 GM TUBE TP SCH ×2 (13:46→21:20)
[2019-06-01] MEDS: MINERAL OIL/PETROLAT/WATER TOPICAL CREAM 113 GM JAR TP SCH (13:46)
--- NOTE | 2019-06-01 16:45 | PN ---
Progress Note (short form) - Note Progress Note: Subjective: no fever or chills. No GONZALEZ , no Abd pain . no diarrhea . has pruritic rash on lowerlegs and chest wall Objective: Vital Signs: Last Vital Signs Temp Pulse Resp BP Pulse Ox 98.1 F 70 18 113/65 96 06/01/19 15:11 06/01/19 15:11 06/01/19 15:11 06/01/19 15:11 05/31/19 21:00 Laboratory Results - last 24 hr 06/01/19 06:35 Sodium 142 Potassium 4.3 Chloride 111 H Carbon Dioxide 27 Anion Gap 4 L BUN 12.2 Creatinine 0.8 Est GFR (CKD-EPI)AfAm 117.38 Est GFR (CKD-EPI)NonAf 101.27 Random Glucose 101 Calcium 8.1 L Phosphorus 2.8 Magnesium 2.4 Physical Exam: NAD. Flat affect CV: RRR, no MRG Lungs: CTAB Abd: soft, TTP in LLQ. no rebound tenderness or guarding. Ext: No edema. papular rash on medial lower legs . maculopapular rash on anterior chest wall ASSESSMENT AND PLAN: 53 y/o man with h/o bipolar, ETOH abuse, Withdrawal seizures who presented with alcohol intoxicationand started having withdrawal sx 1- ETOH withdrawal: - IVF - Librium protocol -monitor electrolytes - cont thiamine and folate 2- Reported black stool. ? melena. Rectal exam with neg guaiac as per resident's exam yesterday will check OB with next BM H&H in am CT of abd pending 3- h/o Bipolar:with severe depression - cont lamictal - psych consult per patient and request 4- DVT px : heparin sq Visit type - Emergency Visit Emergency Visit: Yes ED Registration Date: 05/29/19 Care time: The patient presented to the Emergency Department on the above date and was hospitalized for further evaluation of their emergent condition. - New Patient This patient is new to me today: No - Critical Care Critical Care patient: No
[2019-06-01] MEDS: lamoTRIgine 100 MG TABLET (FP) PO SCH (21:14)
[2019-06-02] MEDS ORDERED: chlordiazePOXIDE HCL 10 MG CAPSULE PO ONE (05:00)
[2019-06-02] MEDS ORDERED: chlordiazePOXIDE 5 MG CAPSULE ONE (05:54)
[2019-06-02] MEDS: HEPARIN NA (PORCINE) 5,000 UNITS/ML 1ML VIAL SQ SCH (05:57)
[2019-06-02 06:38] VITALS: TEMP 97.7
[2019-06-02 08:12] LABS: HEMATOCRIT 39.3 % (35.4-49); HEMOGLOBIN 13.1 GM/dL (11.7-16.9); MCH 31.9 pg (25.7-33.7); MCHC 33.3 g/dl (32.0-35.9); MEAN PLT VOLUME 10.3 fl (7.5-11.1); PLATELET COUNT 154 K/MM3 (134-434); RBC 4.09 M/mm3 (4.00-5.60); RDW 13.9 % (11.9-15.9); WHITE BLOOD COUNT 4.5 K/mm3 (4.0-10.0)
[2019-06-02 08:40] LABS: MAGNESIUM 2.2 mg/dL (1.8-2.4); PHOSPHOROUS 2.9 mg/dL (2.5-4.9); POTASSIUM 4.1 mmol/L (3.5-5.1)
[2019-06-02] MEDS ORDERED: PT OWN MED DRAWER 7, Y5N ONE (09:16)
[2019-06-02] MEDS: MULTIVITAMINS (DAILY MVI) TABLET (FP) PO SCH (09:18)
[2019-06-02] MEDS: lamoTRIgine 25 MG TABLET PO SCH (09:18)
[2019-06-02] MEDS: MINERAL OIL/PETROLAT/WATER TOPICAL CREAM 113 GM JAR TP SCH (09:18)
[2019-06-02] MEDS: THIAMINE HCL 100 MG TABLET (FP) PO SCH (09:18)
[2019-06-02] MEDS: FOLIC ACID 1 MG TABLET (FP) PO SCH (09:18)
[2019-06-02] MEDS: HYDROCORTISONE 1% TOPICAL CREAM 30 GM TUBE TP SCH (09:18)
[2019-06-02] MEDS: SODIUM CHLORIDE 1,000 ML IV SCH (09:19)
[2019-06-02 11:52] VITALS: BP 120/58; PULSE 84
--- NOTE | 2019-06-02 13:39 | DS ---
Physical Exam: SUBJECTIVE: Patient seen and examined. Pt reports no overnight events. Pt states that he has improved significantly and has no further c/o. Afebrile and asymptomatic. OBJECTIVE: Vital Signs Period Temp Pulse Resp BP Sys/Man Pulse Ox Last 24 Hr 9.8 F-98.1 F 65-84 18-20 96-120/58-70 96 PHYSICAL EXAM GENERAL: The patient is awake, alert, and fully oriented, in no acute distress. HEAD: Normal with no signs of trauma. EYES: PERRL, extraocular movements intact, sclera anicteric, conjunctiva clear. NECK: Trachea midline, full range of motion, supple. LUNGS: Breath sounds equal, clear to auscultation bilaterally, no wheezes or crackles. HEART: Regular rate and rhythm, S1, S2 without murmur, rub or gallop. ABDOMEN: Tender to palpation in LLQ. Non tender in all other regions. Rectal exam negative for blood. Normal sphincter tone, no external hemorrhoids or internal masses felt. EXTREMITIES: 2+ pulses, warm, well-perfused, no edema. NEUROLOGICAL: Cranial nerves II through XII grossly intact. Normal speech. PSYCH: mood has improved, no thoughts of harming self or others. LABS Laboratory Results - last 24 hr 06/02/19 06/02/19 07:20 07:20 WBC 4.5 RBC 4.09 Hgb 13.1 Hct 39.3 MCV 96.0 MCH 31.9 MCHC 33.3 RDW 13.9 Plt Count 154 MPV 10.3 Potassium 4.1 Phosphorus 2.9 Magnesium 2.2 Home Medications Medication Instructions Recorded Lamotrigine [Lamictal -] 200 mg PO HS 05/29/19 Lamotrigine 50 mg PO DAILY 05/30/19 Folic Acid - 1 mg PO DAILY #30 tablet 06/02/19 Sennosides [Senna -] 1 tab PO BID #60 tablet 06/02/19 Thiamine HCl [Vitamin B1 -] 100 mg PO DAILY #30 tablet 06/02/19 HOSPITAL COURSE: Date of Admission:05/29/19 53 M with PMH of EtOH abuse and withdrawal seizures who presented to the hospital for alcohol detox before he attended psychiatric treatment for depression. While he was admitted we started him on librium protocoal and took a CT a/p due to c/o of abdominal pain and tenderness. CT abdominal showed no acute findings but a 1.7 cm right hepatic lobe focus/hypodense lesion w/ a 1 cm left hepatic lobe enhancement likely hemiangioma requiring an MRI orCTA for further investigation. Pt also had colonic retention on imaging. He was discharged w/ referral for outpt f/u and MRI and encouraged to attend psychiatric therapy. EKG: NSR CT a/p: no acute findings but a 1.7 cm right hepatic lobe focus/hypodense lesion w/ a 1 cm left hepatic lobe enhancement likely hemiangioma requiring an MRI or CTA for further investigation. Hepatic steatosis also seen. Moderate Colonic fecal retention. Date of Discharge: 06/02/19 Minutes to complete discharge: 35 Discharge Summary Problems reviewed: Yes Reason For Visit: ALCOHOL WITHDRAWL SYDROME Condition: Stable - Instructions Diet, Activity, Other Instructions: You came to the hospital with acute alcohol intoxication in addition to depression symptoms and underwent a few days of detoxification. We took a cat scan of your abdomen and pelvis which showed stool build up, in addition; it showed a spot on the right lobe of your liver which will require an outpatient MRI with contrast for further evaluation. Your symptoms improved and you are going to [facility] for inpatient psych . Please resume home medication in addition: we are prescribing you stool softeners to be taken daily we are also prescribing you thiamine and folic acid pills to be taken daily Please follow up with Dr. Sanders after you are discharged from [facility] and you will need to get MRI of abdomen as discussed. Please follow up with GI doctor, Dr. Lee Please refrain from alcohol use if you have any more black stool please notify your PCP immediately *if you have any more thoughts of harming yourself, chest pain, shortness of breath please return to the emergency room Referrals: Uzair Lee DO [Staff Physician] - Erendira Hurst [Primary Care Provider] - 1 Week Disposition: HOME - Home Medications Comprehensive Discharge Medication List: Ambulatory Orders Lamotrigine [Lamictal -] 200 mg PO HS 05/29/19 Lamotrigine 50 mg PO DAILY 05/30/19 Folic Acid - 1 mg PO DAILY #30 tablet 06/02/19 Sennosides [Senna -] 1 tab PO BID #60 tablet 06/02/19 Thiamine HCl [Vitamin B1 -] 100 mg PO DAILY #30 tablet 06/02/19 This patient is new to me today: Yes Date on this admission: 06/02/19 Emergency Visit: Yes ED Registration Date: 05/29/19 Care time: The patient presented to the Emergency Department on the above date and was hospitalized for further evaluation of their emergent condition. Critical Care patient: No - Discharge Referral Referred to [facility] Med P.C[facility] No ATTENDING PHYSICIAN STATEMENT I saw and evaluated the patient. I reviewed the resident's note and discussed the case with the resident. I agree with the resident's findings and plan as documented. SUBJECTIVE: OBJECTIVE: ASSESSMENT AND PLAN:
--- NOTE | 2019-06-02 19:07 | PN ---
Teaching Attending Note Name of Resident: Adriane Hamilton ATTENDING PHYSICIAN STATEMENT I saw and evaluated the patient. I reviewed the resident's note and discussed the case with the resident. I agree with the resident's findings and plan as documented. SUBJECTIVE: No fever or chills. feels better . still feels depressed but has no SI or homicidal ideations . OBJECTIVE: NAD. Flat affect CV: RRR, no MRG Lungs: CTAB Abd: soft, ND, NL BS , mild discomfort in LLQ Ext: No edema. papular rash on medial lower legs . maculopapular rash on anterior chest wall ASSESSMENT AND PLAN: 53 y/o man with h/o bipolar, ETOH abuse, Withdrawal seizures who presented with alcohol intoxicationand started having withdrawal sx 1- ETOH withdrawal: resolved. finished detox today . No signs of withdrawal any more cont thiamine and folate 2- Reported black stool. ? melena. OB neg . had a brown BM today f/u with GI as out pt CT report reviewed. liver lesion . he and his were notified of the results and the DDx ( adenoma, carcinoma, hemangioma, or cyst) . they will follow as out pt for MRI with jerrod . 3- h/o Bipolar:with severe depression - cont lamictal - f/u with psych as out pt . he will go to [facility] today . aware and he will get inpt psych admission dc today
== END 2019-06-02 11:59 | disposition home or self-care (01) | DRG 897 ==
LOC: JER 14:00 → JERBED 20:45 → J6S 05-30 03:00
PROVIDERS: ADMIT Internal Medicine; ATTEND Internal Medicine
PROC: HZ2ZZZZ Detoxification Services for Substance Abuse Treatment (ICD-10-PCS; principal; 2019-05-29)
DX: F10.220 Alcohol dependence with intoxication, uncomplicated (principal); F31.81 Bipolar II disorder; Y90.8 Blood alcohol level of 240 mg/100 ml or more; F17.210 Nicotine dependence, cigarettes, uncomplicated; F10.239 Alcohol dependence with withdrawal, unspecified; R94.5 Abnormal results of liver function studies; G40.909 Epilepsy, unspecified, not intractable, without status epilepticus; R19.7 Diarrhea, unspecified; D18.00 Hemangioma unspecified site; K76.0 Fatty (change of) liver, not elsewhere classified; K59.00 Constipation, unspecified
CPT/HCPCS: 36415; 74177-TC; 80048; 80053; 80307; 81003; 83735; 84100; 84132; 85025; 85027; 85610; 93005; 93010; 97116-GP; 97161-GP; 99283-25; J1644; J7030

== ENCOUNTER 2020-02-20 20:16 | Inpatient (IN) | payer OTHER ==
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
[2020-02-20] MEDS ORDERED: FOLIC ACID INJECTION - 1 MG, THIAMINE HCL 100 MG, MULTIVIT INJECTION ADULT 10 ML in SOD... IVPB ONE (23:40)
[2020-02-21] MEDS ORDERED: lamoTRIgine 100 MG TABLET ONE (00:18)
--- NOTE | 2020-02-21 00:45 | PDOC ---
*Physical Exam - Vital Signs Last Vital Signs Temp Pulse Resp BP Pulse Ox 98 F 90 18 121/78 99 02/20/20 20:20 02/20/20 20:20 02/20/20 20:20 02/20/20 20:20 02/20/20 20:20 ED Treatment Course - LABORATORY CBC & Chemistry Diagram: 02/23/20 10:15 02/23/20 10:15 - RADIOLOGY Radiology Studies Ordered: Category Date Time Status CHEST X-RAY PORTABLE* [RAD] Stat Radiology 02/21/20 00:44 Ordered - Medications Given in the ED: ED Medications Discontinued Medications Generic Name Dose Route Start Last Admin Trade Name Freq PRN Reason Stop Dose Admin Lamotrigine 200 mg 02/20/20 23:07 02/21/20 00:21 Lamictal - PO 02/20/20 23:08 200 mg ONCE ONE Administration Medical Decision Making - Medical Decision Making 02/21/20 00:45 54M with PMH type II bipolar depression on lamotrigine, alcohol use disorder s/p detox, multiple episodes of suicidal ideation, presenting with alcohol intoxication, sent by psychiatrist Dr. Trujillo for detox. []EKG,CXR,labs Admit for detox (PCP Dominick) 02/21/20 01:56 Labs reviewed. +benzos, MJ, alcohol EKG reviewed: normal sinus rhythm, 69bpm, normal axis, normal intervals, no TWIs, no ST elevations or depressions CXR reviewed: No acute pathology Pt sleeping comfortably, no current complaints. Admit med/surg for detox Discharge - Discharge Information Problems reviewed: Yes Clinical Impression/Diagnosis: Seizure disorder Alcohol intoxication Qualifiers: Complication of substance-induced condition: uncomplicated Qualified Code(s): F10.920 - Alcohol use, unspecified with intoxication, uncomplicated Alcohol withdrawal Qualifiers: Complication of substance-induced condition: uncomplicated Qualified Code(s): F10.230 - Alcohol dependence with withdrawal, uncomplicated Disposition: AGAINST MEDICAL ADVICE - Follow up/Referral - Patient Discharge Instructions - Post Discharge Activity
[2020-02-21 00:48] LABS: HEMATOCRIT 41.7 % (35.4-49); MCH 31.8 pg (25.7-33.7); MCHC 33.5 g/dl (32.0-35.9); MEAN CELL VOLUME 95.1 fl (80-96); MEAN PLT VOLUME 9.9 fl (7.5-11.1); PLATELET COUNT 172 K/MM3 (134-434); RBC 4.39 M/mm3 (4.00-5.60); RDW 13.8 % (11.9-15.9); WHITE BLOOD COUNT 5.9 K/mm3 (4.0-10.0)
[2020-02-21 01:29] LABS: ALBUMIN 4.1 g/dl (3.4-5.0); BILIRUBIN,TOTAL 0.4 mg/dL (0.2-1); BLOOD UREA NITROGEN 19.6 mg/dL (7-18); CALCIUM 8.6 mg/dL (8.5-10.1); POTASSIUM 4.2 mmol/L (3.5-5.1)
--- NOTE | 2020-02-21 02:17 | HP ---
Admitting History and Physical - Admission History of Present Illness: This is a 54 y/o male with a PMHx of Bipolar Disorder, Alcohol Abuse, Seizure (Alcohol Withdrawal) last admission 05/29-06/02- Alcohol Withdrawal. Who presents to the ED sent in by his psychiatrist Dr. Trujillo for Alcohol Intoxication and Detox. Per ED records: patient's reports that the patient has been drinking daily and coming home intoxicated for several days. Patient admits to drinking a pint of vodka daily. He denies suicidal ideation, homicidal ideation. Patient denies fever, chills, cough, SOB, GONZALEZ, CP, palpitations, AP, N/V/D, constipation, dysuria. 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) Psych: Yes: Bipolar - Past Surgical History Past Surgical History: Yes: None - Smoking History Smoking history: Former smoker Have you smoked in the past 12 months: Yes If you are a former smoker, when did you quit?: 03/2019 - Alcohol/Substance Use Hx Alcohol Use: Yes (Vodka 1 bottle daily) History of Substance Use: reports: None (denies) - Social History Usual Living Arrangement: Yes: With Spouse Do you think of yourself as: Villalobos, Lesbian or Homosexual ADL: Independent Occupation: Employed- [employer] History of Recent Travel: No Home Medications - Allergies Allergies/Adverse Reactions: Allergies Allergy/AdvReac Type Severity Reaction Status Date / Time No Known Allergies Allergy Verified 02/20/20 20:23 - Home Medications Home Medications: Ambulatory Orders Lamotrigine [Lamictal -] 200 mg PO HS 05/29/19 Lamotrigine 50 mg PO DAILY 05/30/19 Folic Acid - 1 mg PO DAILY #30 tablet 06/02/19 Sennosides [Senna -] 1 tab PO BID #60 tablet 06/02/19 Thiamine HCl [Vitamin B1 -] 100 mg PO DAILY #30 tablet 06/02/19 Family Medical History Family History: Unremarkable Review of Systems Unable to obtain ROS, reason: Clinical Condition Physical Examination Vital Signs: Vital Signs Temperature 98 F 02/20/20 20:20 Pulse Rate 90 02/20/20 20:20 Respiratory Rate 18 02/20/20 20:20 Blood Pressure 121/78 02/20/20 20:20 O2 Sat by Pulse Oximetry (%) 99 02/20/20 20:20 Constitutional: Yes: Well Nourished, No Distress, Calm Eyes: Yes: WNL, Conjunctiva Clear, EOM Intact, PERRL HENT: Yes: Atraumatic, Normocephalic, Other (dry mucous membranes) Neck: Yes: WNL, Supple, Trachea Midline Cardiovascular: Yes: Regular Rate and Rhythm, S1, S2 Respiratory: Yes: WNL, Regular, CTA Bilaterally Gastrointestinal: Yes: WNL, Normal Bowel Sounds, Soft ...Rectal Exam: Yes: Deferred Renal/: Yes: WNL Breast(s): Yes: WNL Musculoskeletal: Yes: WNL Extremities: Yes: WNL Edema: No Peripheral Pulses WNL: Yes Integumentary: Yes: WNL Neurological: Yes: Alert, Oriented (x2), Tremors Psychiatric: Yes: WNL, Alert, Oriented Labs: CBC, BMP 02/21/20 00:14 02/21/20 00:14 Laboratory Results - last 24 hr 02/21/20 02/21/20 02/21/20 00:14 00:14 02:34 WBC 5.9 RBC 4.39 Hgb 14.0 Hct 41.7 MCV 95.1 MCH 31.8 MCHC 33.5 RDW 13.8 Plt Count 172 MPV 9.9 Sodium 143 Potassium 4.2 Chloride 107 Carbon Dioxide 29 Anion Gap 7 L BUN 19.6 H Creatinine 1.0 Est GFR (CKD-EPI)AfAm 97.77 Est GFR (CKD-EPI)NonAf 84.35 Random Glucose 70 L Calcium 8.6 Total Bilirubin 0.4 AST 86 H ALT 60 Alkaline Phosphatase 69 Total Protein 7.0 Albumin 4.1 Opiates Screen Negative Methadone Screen Negative Barbiturate Screen Negative Phencyclidine Screen Negative Ur Amphetamines Screen Negative MDMA (Ecstasy) Screen Negative Benzodiazepines Screen Positive A* Cocaine Screen Negative U Marijuana (THC) Screen Positive A* Alcohol, Quantitative 186.3 H Intake & Output 02/18/20 02/19/20 02/20/20 02/21/20 23:59 23:59 23:59 23:59 Weight 78.925 kg Current Medications Generic Name Dose Route Start Last Admin Trade Name Freq PRN Reason Stop Dose Admin Chlordiazepoxide HCl 50 mg 02/21/20 05:00 02/21/20 04:07 Librium - PO 02/21/20 23:01 50 mg [id number] LIZETTE Administration Chlordiazepoxide HCl 25 mg 02/22/20 05:00 Librium - PO 02/22/20 23:01 [id number] LIZETTE Chlordiazepoxide HCl 25 mg 02/21/20 03:48 Librium - PO 02/22/20 23:59 Q4H PRN WITHDRAWAL(CONT SUBST) Chlordiazepoxide HCl 10 mg 02/23/20 05:00 Librium - PO 02/23/20 23:01 [id number] LIZETTE Chlordiazepoxide HCl 10 mg 02/24/20 05:00 Librium - PO 02/24/20 17:01 Q12H LIZETTE Chlordiazepoxide HCl 10 mg 02/23/20 00:00 Librium - PO 02/24/20 00:00 Q4H PRN WITHDRAWAL(CONT SUBST) Chlordiazepoxide HCl 10 mg 02/25/20 05:00 Librium - PO 02/25/20 05:01 ONCE@0500 ONE Folic Acid 1 mg 02/21/20 10:00 Folic Acid - PO DAILY [facility] Folic Acid 1 mg/ Thiamine HCl 1,000 mls @ 125 mls/hr 02/20/20 23:40 02/21/20 02:48 100 mg/ Multivitamins/Minerals IVPB 02/21/20 07:39 125 mls/hr 10 ml/ Sodium Chloride ONCE ONE Administration Multivitamins/Minerals/Vitamin C 1 tab 02/21/20 10:00 Tab-A-Vit - PO DAILY [facility] Pneumococcal 13-Valent Conj Vacc 0.5 ml 02/21/20 04:14 Prevnar 13 Syringe - IM 02/21/20 04:15 .ONCE ONE Thiamine HCl 100 mg 02/21/20 10:00 Vitamin B1 - PO DAILY [facility] Imaging - Results Chest X-ray: Image Reviewed EKG: Image Reviewed Problem List - Problems (1) Alcohol intoxication Assessment/Plan: Detox admissions in the past, most recent [facility] ETOH 186.3 UDT-THC, Benzos CIWA-ar 3 Banana Bag given in ED Librium Protocol initiated Appreciate Detox Specialist [employer] request Monitor for DTs Seizure Precautions Fall Precautions Thiamine, MVI, Folic Acid daily Monitor CBC, CMP Monitor vitals Code(s): F10.929 - ALCOHOL USE, UNSPECIFIED WITH INTOXICATION, UNSPECIFIED Qualifiers: Complication of substance-induced condition: uncomplicated Qualified Code(s): F10.920 - Alcohol use, unspecified with intoxication, uncomplicated (2) Alcohol withdrawal Assessment/Plan: see above Code(s): F10.239 - ALCOHOL DEPENDENCE WITH WITHDRAWAL, UNSPECIFIED Qualifiers: Complication of substance-induced condition: uncomplicated Qualified Code(s): F10.230 - Alcohol dependence with withdrawal, uncomplicated (3) Bipolar disorder Assessment/Plan: Continue home med Code(s): F31.9 - BIPOLAR DISORDER, UNSPECIFIED (4) Seizure disorder Assessment/Plan: Likely secondary to Alcohol Withdrawal Seizure Precautions Continue home meds Code(s): G40.909 - EPILEPSY, UNSP, NOT INTRACTABLE, WITHOUT STATUS EPILEPTICUS Assessment/Plan This is a 54 y/o male with a PMHx of Bipolar Disorder, Alcohol Abuse, Seizure (Alcohol Withdrawal). Admitted to M/S for alcohol Intoxication, Alcohol Withdrawal for further evaluation of their emergent condition. Plan: See Problem List FEN PO fluids as tolerated Replete lytes prn Regular Diet DVT ppx OOB SCDs Heparin SQ Dispo: Requires Inpatient Care Visit type - Emergency Visit Emergency Visit: Yes ED Registration Date: 02/20/20 Care time: The patient presented to the Emergency Department on the above date and was hospitalized for further evaluation of their emergent condition. - New Patient This patient is new to me today: Yes Date on this admission: 02/21/20 - Critical Care Critical Care patient: No
[2020-02-21 03:17] LABS: COCAINE, UR NEGATIVE ng/ml (CUTOFF=300); OPIATES, URI NEGATIVE ng/ml (CUTOFF=300); PHENCYCLIDINE,URINE NEGATIVE ng/ml (CUTOFF=25); URINE AMPHETAMINES NEGATIVE ng/ml (CUTOFF=500); URINE BARBITURATES NEGATIVE ng/ml (CUTOFF=200)
[2020-02-21 03:25] LABS: METHADONE, UR NEGATIVE ng/ml (CUTOFF=300)
[2020-02-21] MEDS: chlordiazePOXIDE HCL 25 MG CAPSULE PO SCH ×4 (04:07→23:43)
[2020-02-21] MEDS ORDERED: PNEUMOC 13-VAL CONJ-DIP CRM/PF 0.5 ML DISP.SYRIN IM ONE (04:14)
[2020-02-21 04:43] LABS: URINE BENZODIAZEPINES POSITIVE ng/ml (CUTOFF=200)
[2020-02-21 05:23] VITALS: BMI 28.1
[2020-02-21] MEDS ORDERED: PNEUMOCOCCAL 23 VACCINE 0.5 ML VIAL IM ONE ×2 (08:30→10:00)
[2020-02-21] MEDS: MULTIVITAMINS (DAILY MVI) TABLET (FP) PO SCH (09:37)
[2020-02-21] MEDS: THIAMINE HCL 100 MG TABLET (FP) PO SCH (09:37)
[2020-02-21] MEDS: FOLIC ACID 1 MG TABLET (FP) PO SCH (09:37)
[2020-02-21] MEDS: chlordiazePOXIDE HCL 25 MG CAPSULE PO PRN (09:43)
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
--- NOTE | 2020-02-21 10:48 | EKG ---
Test Reason : Blood Pressure : / mmHG Vent. Rate : 069 BPM Atrial Rate : 069 BPM P-R Int : 156 ms QRS Dur : 094 ms QT Int : 412 ms P-R-T Axes : 020 030 033 degrees QTc Int : 441 ms NORMAL SINUS RHYTHM NORMAL ECG WHEN COMPARED WITH ECG OF 29-MAY-2019 14:38, NO SIGNIFICANT CHANGE WAS FOUND Confirmed by Audrey Seymour ([id number]) on 02/21/2020 10:47:50 AM Referred By: Confirmed By:Audrey Seymour
--- NOTE | 2020-02-21 14:40 | PN ---
Physical Exam: SUBJECTIVE: Patient seen and examined. He reports feeling mildly anxious and has headache. He denies n/v/d. OBJECTIVE: Vital Signs Period Temp Pulse Resp BP Sys/Man Pulse Ox Last 24 Hr 97.4 F-98 F 74-90 16-20 104-131/71-84 96-99 GENERAL: The patient is awake, alert, and fully oriented, in no acute distress. Sleepy. HEAD: Normal with no signs of trauma. EYES: PERRL, extraocular movements intact, conjunctiva clear. ENT: Ears normal, nares patent, moist mucous membranes. NECK: Trachea midline, full range of motion, supple. LUNGS: Clear to auscultation bilaterally, no wheezes, no crackles. HEART: Regular rate and rhythm, no murmur. ABDOMEN: Soft, nontender, nondistended, normoactive bowel sounds. EXTREMITIES: Warm, well-perfused, no edema. NEUROLOGICAL: Cranial nerves II through XII grossly intact. Normal speech. PSYCH: Normal mood, normal affect. SKIN: Warm, dry, normal turgor. Laboratory Results - last 24 hr 02/21/20 02/21/20 02/21/20 00:14 00:14 02:34 WBC 5.9 RBC 4.39 Hgb 14.0 Hct 41.7 MCV 95.1 MCH 31.8 MCHC 33.5 RDW 13.8 Plt Count 172 MPV 9.9 Sodium 143 Potassium 4.2 Chloride 107 Carbon Dioxide 29 Anion Gap 7 L BUN 19.6 H Creatinine 1.0 Est GFR (CKD-EPI)AfAm 97.77 Est GFR (CKD-EPI)NonAf 84.35 Random Glucose 70 L Calcium 8.6 Total Bilirubin 0.4 AST 86 H ALT 60 Alkaline Phosphatase 69 Total Protein 7.0 Albumin 4.1 Opiates Screen Negative Methadone Screen Negative Barbiturate Screen Negative Phencyclidine Screen Negative Ur Amphetamines Screen Negative MDMA (Ecstasy) Screen Negative Benzodiazepines Screen Positive A* Cocaine Screen Negative U Marijuana (THC) Screen Positive A* Alcohol, Quantitative 186.3 H Active Medications Generic Name Dose Route Start Last Admin Trade Name Freq PRN Reason Stop Dose Admin Chlordiazepoxide HCl 50 mg 02/21/20 05:00 02/21/20 12:44 Librium - PO 02/21/20 23:01 50 mg [id number] LIZETTE Administration Chlordiazepoxide HCl 25 mg 02/22/20 05:00 Librium - PO 02/22/20 23:01 [id number] LIZETTE Chlordiazepoxide HCl 25 mg 02/21/20 03:48 02/21/20 09:43 Librium - PO 02/22/20 23:59 25 mg Q4H PRN Administration WITHDRAWAL(CONT SUBST) Chlordiazepoxide HCl 10 mg 02/23/20 05:00 Librium - PO 02/23/20 23:01 [id number] LIZETTE Chlordiazepoxide HCl 10 mg 02/24/20 05:00 Librium - PO 02/24/20 17:01 Q12H LIZETTE Chlordiazepoxide HCl 10 mg 02/23/20 00:00 Librium - PO 02/24/20 00:00 Q4H PRN WITHDRAWAL(CONT SUBST) Chlordiazepoxide HCl 10 mg 02/25/20 05:00 Librium - PO 02/25/20 05:01 ONCE@0500 ONE Folic Acid 1 mg 02/21/20 10:00 02/21/20 09:37 Folic Acid - PO 1 mg DAILY LIZETTE Administration Multivitamins/Minerals/Vitamin C 1 tab 02/21/20 10:00 02/21/20 09:37 Tab-A-Vit - PO 1 tab DAILY LIZETTE Administration Pneumococcal Polyvalent Vaccine 0.5 ml 02/21/20 08:30 Pneumovax - IM 02/21/20 08:31 .ONCE ONE Thiamine HCl 100 mg 02/21/20 10:00 02/21/20 09:37 Vitamin B1 - PO 100 mg DAILY LIZETTE Administration ASSESSMENT/PLAN: This is a 54 y/o male with a PMHx of Bipolar Disorder, Alcohol Abuse, Seizure (Alcohol Withdrawal). Admitted to M/S for alcohol Intoxication, Alcohol Withdrawal for further evaluation of their emergent condition. #alcohol use disorder -continue librium protocol -addiction medicine consult #seizure disorder -continue home lamotrigine FEN PO fluids as tolerated Replete lytes prn Regular Diet DVT ppx OOB SCDs Heparin SQ Dispo med/surg FULL CODE Visit type - Emergency Visit Emergency Visit: Yes ED Registration Date: 02/21/20 Care time: The patient presented to the Emergency Department on the above date and was hospitalized for further evaluation of their emergent condition. - New Patient This patient is new to me today: Yes Date on this admission: 02/21/20 - Critical Care Critical Care patient: No ATTENDING PHYSICIAN STATEMENT I saw and evaluated the patient. I reviewed the resident's note and discussed the case with the resident. I agree with the resident's findings and plan as documented. SUBJECTIVE: OBJECTIVE: ASSESSMENT AND PLAN:
--- NOTE | 2020-02-21 16:59 | PN ---
Teaching Attending Note Name of Resident: Shauna Morgan ATTENDING PHYSICIAN STATEMENT I saw and evaluated the patient. I reviewed the resident's note and discussed the case with the resident. I agree with the resident's findings and plan as documented. SUBJECTIVE: Comfortable no new complaints no tremors OBJECTIVE: Vital Signs Period Temp Pulse Resp BP Sys/Man Pulse Ox Last 24 Hr 97.4 F-98 F 74-90 16-20 104-134/71-84 96-99 Patient is comfortable HEENT normal Neck supple no JVD Lungs clear no wheezing Abdomen nontender no organomegaly bowel sounds normal Extremities no edema no cyanosis normal pulses Neurologically he is alert awake oriented, nonfocal Skin no rash noted ASSESSMENT AND PLAN: This is a 54 y/o male with a PMHx of Bipolar Disorder, Alcohol Abuse, Seizure (Alcohol Withdrawal). Admitted to M/S for alcohol Intoxication, Alcohol Withdrawal for further evaluation of their emergent condition. Plan he is improving well continue p.o. fluids replace electrolytes regular diet out of bed and alcohol withdrawal protocol continue his home medications Seen and examined. Please see resident note for further historical information. I personally verified all the asencio historical formation and exam findings. Personally interpreted imaging and diagnostics and reviewed appropriate results. I reviewed all labs and vital signs are per the resident note and EMR as documented. I agree with the above assessment and plan unless supplemented by myself and the following.
[2020-02-21 18:37] LABS: MAGNESIUM 2.2 mg/dL (1.8-2.4); PHOSPHOROUS 2.6 mg/dL (2.5-4.9)
[2020-02-21] MEDS ORDERED: lamoTRIgine 100 MG TABLET PO SCH (18:45)
[2020-02-21] MEDS ORDERED: lamoTRIgine 100 MG TABLET PO ONE (22:14)
[2020-02-22] MEDS: chlordiazePOXIDE HCL 25 MG CAPSULE PO SCH ×4 (05:32→23:11)
[2020-02-22] MEDS: lamoTRIgine 100 MG TABLET PO SCH (06:07)
[2020-02-22 07:41] LABS: HEMATOCRIT 40.3 % (35.4-49); HEMOGLOBIN 13.7 GM/dL (11.7-16.9); MCH 32.2 pg (25.7-33.7); MCHC 33.9 g/dl (32.0-35.9); MEAN CELL VOLUME 94.9 fl (80-96); MEAN PLT VOLUME 9.8 fl (7.5-11.1); PLATELET COUNT 141 K/MM3 (134-434); RBC 4.24 M/mm3 (4.00-5.60); RDW 13.8 % (11.9-15.9); WHITE BLOOD COUNT 4.6 K/mm3 (4.0-10.0)
[2020-02-22 08:13] LABS: ALBUMIN 3.6 g/dl (3.4-5.0); BILIRUBIN,TOTAL 0.7 mg/dL (0.2-1); BLOOD UREA NITROGEN 12.4 mg/dL (7-18); CALCIUM 8.7 mg/dL (8.5-10.1); CREATININE 0.8 mg/dL (0.55-1.3); MAGNESIUM 2.3 mg/dL (1.8-2.4); PHOSPHOROUS 2.3 mg/dL (2.5-4.9); TOT PROT 6.3 g/dl (6.4-8.2)
[2020-02-22] MEDS: FOLIC ACID 1 MG TABLET (FP) PO SCH ×2 (08:27→12:48)
[2020-02-22] MEDS: chlordiazePOXIDE HCL 25 MG CAPSULE PO PRN ×2 (08:28→15:10)
[2020-02-22] MEDS: MULTIVITAMINS (DAILY MVI) TABLET (FP) PO SCH ×2 (08:29→12:48)
[2020-02-22] MEDS: THIAMINE HCL 100 MG TABLET (FP) PO SCH ×2 (08:29→12:49)
--- NOTE | 2020-02-22 12:44 | PN ---
Physical Exam: SUBJECTIVE: Patient seen and examined Patient is comfortable. He ate breakfast. No abdominal pain no diarrhea no nausea vomiting he has slight headache of 1/10 no associated symptoms with that. OBJECTIVE: Vital Signs Period Temp Pulse Resp BP Sys/Man Pulse Ox Last 24 Hr 97.4 F-98.6 F 65-86 17-18 112-134/70-78 95-98 Patient is comfortable but little tremors HEENT normal Neck supple no JVD Lungs clear no wheezing Abdomen nontender no organomegaly bowel sounds normal Extremities no edema no cyanosis normal pulses Neurologically he is alert awake oriented, nonfocal Skin no rash noted Laboratory Results - last 24 hr 02/21/20 02/21/20 02/22/20 15:25 20:18 07:05 WBC 4.6 RBC 4.24 Hgb 13.7 Hct 40.3 MCV 94.9 MCH 32.2 MCHC 33.9 RDW 13.8 Plt Count 141 MPV 9.8 Sodium Potassium Chloride Carbon Dioxide Anion Gap BUN Creatinine Est GFR (CKD-EPI)AfAm Est GFR (CKD-EPI)NonAf Random Glucose Calcium Phosphorus 2.6 Magnesium 2.2 Total Bilirubin AST ALT Alkaline Phosphatase Total Protein Albumin COVID-19 (SHY) Not detected 02/22/20 07:05 WBC RBC Hgb Hct MCV MCH MCHC RDW Plt Count MPV Sodium 140 Potassium 4.0 Chloride 107 Carbon Dioxide 29 Anion Gap 4 L BUN 12.4 Creatinine 0.8 Est GFR (CKD-EPI)AfAm 116.56 Est GFR (CKD-EPI)NonAf 100.57 Random Glucose 108 H Calcium 8.7 Phosphorus 2.3 L Magnesium 2.3 Total Bilirubin 0.7 AST 121 H ALT 104 H Alkaline Phosphatase 70 Total Protein 6.3 L Albumin 3.6 COVID-19 (SHY) Active Medications Generic Name Dose Route Start Last Admin Trade Name Freq PRN Reason Stop Dose Admin Chlordiazepoxide HCl 25 mg 02/22/20 05:00 02/22/20 11:07 Librium - PO 02/22/20 23:01 25 mg [id number] LIZETTE Administration Chlordiazepoxide HCl 25 mg 02/21/20 03:48 02/22/20 08:28 Librium - PO 02/22/20 23:59 25 mg Q4H PRN Administration WITHDRAWAL(CONT SUBST) Chlordiazepoxide HCl 10 mg 02/23/20 05:00 Librium - PO 02/23/20 23:01 [id number] LIZETTE Chlordiazepoxide HCl 10 mg 02/24/20 05:00 Librium - PO 02/24/20 17:01 Q12H LIZETTE Chlordiazepoxide HCl 10 mg 02/23/20 00:00 Librium - PO 02/24/20 00:00 Q4H PRN WITHDRAWAL(CONT SUBST) Chlordiazepoxide HCl 10 mg 02/25/20 05:00 Librium - PO 02/25/20 05:01 ONCE@0500 ONE Folic Acid 1 mg 02/21/20 10:00 02/22/20 08:27 Folic Acid - PO 1 mg DAILY LIZETTE Administration Lamotrigine 100 mg 02/22/20 07:00 02/22/20 06:07 Lamictal - PO 100 mg AM LIZETTE Administration Multivitamins/Minerals/Vitamin C 1 tab 02/21/20 10:00 02/22/20 08:29 Tab-A-Vit - PO 1 tab DAILY LIZETTE Administration Thiamine HCl 100 mg 02/21/20 10:00 02/22/20 08:29 Vitamin B1 - PO 100 mg DAILY LIZETTE Administration ASSESSMENT/PLAN: This is a 54 y/o male with a PMHx of Bipolar Disorder, Alcohol Abuse, Seizure (Alcohol Withdrawal). Admitted to M/S for alcohol Intoxication, Alcohol Withdrawal for further evaluation of their emergent condition. Plan he is improving well continue p.o. fluids replace electrolytes regular diet out of bed and alcohol withdrawal protocol continue his home medications I discussed the patient for if he feels like going home but he got a little angry and wanted to go home right away I told him maybe in a day or 2 because he still has some withdrawal symptoms We will continue benzodiazepines at this time Visit type - Emergency Visit Emergency Visit: Yes ED Registration Date: 02/21/20 Care time: The patient presented to the Emergency Department on the above date and was hospitalized for further evaluation of their emergent condition. - New Patient This patient is new to me today: No - Critical Care Critical Care patient: No - Discharge Referral Referred to [facility] Med P.C.: No
[2020-02-22] MEDS: BACITRACIN 15 GM TUBE TOPICAL OINTMENT TP SCH (21:35)
[2020-02-23] MEDS ORDERED: chlordiazePOXIDE HCL 10 MG CAPSULE PO PRN
[2020-02-23] MEDS ORDERED: chlordiazePOXIDE HCL 10 MG CAPSULE PO SCH (05:00)
[2020-02-23] MEDS: lamoTRIgine 100 MG TABLET PO SCH (06:16)
[2020-02-23] MEDS ORDERED: lamoTRIgine 100 MG TABLET PO SCH ×2 (07:18→22:00)
[2020-02-23] MEDS ORDERED: NAPH,MB-DB/K PH,MBDB POWDER PACKET PO ONE (07:18)
[2020-02-23] MEDS: FOLIC ACID 1 MG TABLET (FP) PO SCH (09:00)
[2020-02-23] MEDS: THIAMINE HCL 100 MG TABLET (FP) PO SCH (09:01)
[2020-02-23] MEDS: MULTIVITAMINS (DAILY MVI) TABLET (FP) PO SCH (09:01)
[2020-02-23] MEDS: BACITRACIN 15 GM TUBE TOPICAL OINTMENT TP SCH (09:55)
[2020-02-23] MEDS ORDERED: lamoTRIgine 100 MG TABLET PO PRN (10:00)
[2020-02-23] MEDS ORDERED: LAMOTRIGINE 50 MG PO SCH (10:00)
[2020-02-23] MEDS ORDERED: LAMOTRIGINE 50 MG PO PRN (10:00)
[2020-02-23] MEDS ORDERED: SENNOSIDES 8.6MG TABLET (FP) PO SCH (10:00)
[2020-02-23] MEDS ORDERED: THIAMINE HCL 100 MG TABLET (FP) PO SCH (10:00)
[2020-02-23] MEDS ORDERED: lamoTRIgine 25 MG TABLET PO SCH (10:00)
--- NOTE | 2020-02-23 10:15 | PN ---
Teaching Attending Note Name of Resident: Maral Blue ATTENDING PHYSICIAN STATEMENT I reviewed the resident's note and discussed the case with the resident. I agree with the resident's findings and plan as documented. SUBJECTIVE: Patient eloped prior to seeing the patient. patient was cleared by psych. earlier this morning that he can sign AMA. OBJECTIVE: Vital Signs Temperature 98.1 F 02/23/20 09:00 Pulse Rate 85 02/23/20 09:00 Respiratory Rate 16 02/23/20 09:00 Blood Pressure 130/70 02/23/20 09:00 O2 Sat by Pulse Oximetry (%) 97 02/23/20 09:00 CBCD WBC 3.7 K/mm3 (4.0-10.0) L 02/23/20 10:15 RBC 4.60 M/mm3 (4.00-5.60) 02/23/20 10:15 Hgb 14.7 GM/dL (11.7-16.9) 02/23/20 10:15 Hct 44.0 % (35.4-49) 02/23/20 10:15 MCV 95.6 fl (80-96) 02/23/20 10:15 MCHC 33.5 g/dl (32.0-35.9) 02/23/20 10:15 RDW 13.7 % (11.9-15.9) 02/23/20 10:15 Plt Count 155 K/MM3 (134-434) 02/23/20 10:15 MPV 10.2 fl (7.5-11.1) 02/23/20 10:15 CMP Sodium 141 mmol/L (136-145) 02/23/20 10:15 Potassium 4.5 mmol/L (3.5-5.1) 02/23/20 10:15 Chloride 108 mmol/L (98-107) H 02/23/20 10:15 Carbon Dioxide 28 mmol/L (21-32) 02/23/20 10:15 Anion Gap 4 MMOL/L (8-16) L 02/23/20 10:15 BUN 6.2 mg/dL (7-18) L 02/23/20 10:15 Creatinine 0.8 mg/dL (0.55-1.3) 02/23/20 10:15 Random Glucose 91 mg/dL (74-106) 02/23/20 10:15 Calcium 9.3 mg/dL (8.5-10.1) 02/23/20 10:15 Total Bilirubin 0.5 mg/dL (0.2-1) 02/23/20 10:15 AST 123 U/L (15-37) H 02/23/20 10:15 ALT 152 U/L (13-61) H 02/23/20 10:15 Alkaline Phosphatase 81 U/L (45-117) 02/23/20 10:15 Total Protein 7.3 g/dl (6.4-8.2) 02/23/20 10:15 Albumin 4.1 g/dl (3.4-5.0) 02/23/20 10:15 Home Medications Medication Instructions Recorded Lamotrigine [Lamictal -] 200 mg PO HS 05/29/19 Lamotrigine 50 mg PO DAILY 05/30/19 Folic Acid - 1 mg PO DAILY #30 tablet 06/02/19 Sennosides [Senna -] 1 tab PO BID #60 tablet 06/02/19 Thiamine HCl [Vitamin B1 -] 100 mg PO DAILY #30 tablet 06/02/19 Lamotrigine 100 mg PO AM 02/21/20 Chlordiazepoxide [Librium -] 25 mg PO TID 02/23/20 ASSESSMENT AND PLAN: This is a 54 y/o male with a PMHx of Bipolar Disorder, Alcohol Abuse, Seizure (Alcohol Withdrawal). Admitted to /S for alcohol Intoxication, Alcohol Withdrawal for further evaluation of their emergent condition.
--- NOTE | 2020-02-23 10:29 | CON.PSY ---
Psychiatry Consult Chief Complaint: 54 year old male with a long history of Bi Polar Disorder and alcohol dependence admitted for Detox.Patient was placed on 1:1 when he said he was fed up. No reports of any self damaging behaviour... Patient is angry because he was not allowed to take a shower while on 1:1. Patient denies any suicidal ideas now. no sduicidal History. Patient is followed by dr. Farias at [facility] and is on Lamictal.. Symptoms: reports: Irritability, Conduct Problems, Oppositionalism - Previous Psychiatric Treatment Outpatient: Less than 6 mos ago Inpatient: One prior admission - Previous Substance Abuse Treatment Outpatient: Less than 6 mos ago Inpatient: Within the last 12 months, One prior admission - Reason for Previous Treatment Reason for Previous Treatment: Biploar Illness, Alcohol Abuse - Current Medications Current Medications: Active Medications Bacitracin (Bacitracin -) 1 applic TP BID [facility] Last Admin: 02/23/20 09:55 Dose: Not Given Documented by: Chlordiazepoxide HCl (Librium -) 10 mg PO [id number] [facility] Stop: 02/23/20 23:01 Last Admin: 02/23/20 05:13 Dose: 10 mg Documented by: Chlordiazepoxide HCl (Librium -) 10 mg PO Q12H [facility] Stop: 02/24/20 17:01 Chlordiazepoxide HCl (Librium -) 10 mg PO Q4H PRN PRN Reason: WITHDRAWAL(CONT SUBST) Stop: 02/24/20 00:00 Chlordiazepoxide HCl (Librium -) 10 mg PO ONCE@0500 ONE Stop: 02/25/20 05:01 Folic Acid (Folic Acid -) 1 mg PO DAILY [facility] Last Admin: 02/23/20 09:00 Dose: 1 mg Documented by: Lamotrigine (Lamictal -) 200 mg PO [facility] Lamotrigine (Lamictal -) 50 mg PO DAILY [facility] Last Admin: 02/23/20 09:55 Dose: Not Given Documented by: Multivitamins/Minerals/Vitamin C (Tab-A-Vit -) 1 tab PO DAILY [facility] Last Admin: 02/23/20 09:01 Dose: 1 tab Documented by: Senna (Senna -) 1 tab PO BID [facility] Last Admin: 02/23/20 10:22 Dose: 1 tab Documented by: Thiamine HCl (Vitamin B1 -) 100 mg PO DAILY [facility] Last Admin: 02/23/20 09:06 Dose: Not Given Documented by: - Allergies Allergies: Allergies Allergy/AdvReac Type Severity Reaction Status Date / Time No Known Allergies Allergy Verified 02/20/20 20:23 - Current Living Status Usual Living Arrangement: With Significant Other - Current Mental Status Evaluation Appearance: Well Groomed Attitude: Uncooperative - Affect Affect: Full Range Appropriateness: Appropriate to Content - Mood Mood: Angry - Speech/Language Expressive: Coherent - Psychomotor Activity Psychomotor Activity: Normal - Thought Process Thought Process: Intact - Thought Content Hallucinations: Absent Delusions: Absent - Self Perception Self Perception: No Impairment - Cognition Attention: Alert Orientation: Time Memory, Immediate Recall: Intact Memory, Short Term: 3/3 Memory, Remote with Promptin/3 - Concentration Serial Sevens Intact: Yes Simple Calculations Intact: Yes - Abstraction Proverb Interpretation: Intact Judgement: Minimally Impaired - Insight Insight: Intact - Impulse Control Impulse Control: Good Control - Suicidal Ideation Suicidal Ideation: No - Homicidal Ideation Homicidal Ideation: No Assessment/Plan 1) d/c 1:1. 2) Patient can sign out AMA. 3) will follow up with Dr. Mao.
[2020-02-23 11:17] LABS: HEMOGLOBIN 14.7 GM/dL (11.7-16.9); MCHC 33.5 g/dl (32.0-35.9); MEAN CELL VOLUME 95.6 fl (80-96); MEAN PLT VOLUME 10.2 fl (7.5-11.1); PLATELET COUNT 155 K/MM3 (134-434); RDW 13.7 % (11.9-15.9); WHITE BLOOD COUNT 3.7 K/mm3 (4.0-10.0)
[2020-02-23 11:33] VITALS: BP 130/70; PULSE 85; TEMP 98.1
[2020-02-23 11:55] LABS: BILIRUBIN,TOTAL 0.5 mg/dL (0.2-1); BLOOD UREA NITROGEN 6.2 mg/dL (7-18); CALCIUM 9.3 mg/dL (8.5-10.1); CREATININE 0.8 mg/dL (0.55-1.3); MAGNESIUM 2.3 mg/dL (1.8-2.4); PHOSPHOROUS 2.6 mg/dL (2.5-4.9); POTASSIUM 4.5 mmol/L (3.5-5.1); TOT PROT 7.3 g/dl (6.4-8.2)
[2020-02-23 11:56] LABS: ALBUMIN 4.1 g/dl (3.4-5.0)
--- NOTE | 2020-02-23 12:48 | DS ---
Physical Exam: SUBJECTIVE: Patient seen and examined this morning. Was very upset and crying. Expressed hopelessness, felt there was no reason to get better because everyone in his life had or will leave him and that he was going to lose his job. Patient very upset with how he's been treated, wants to leave. Discussed with him to allow us to help him and to stay for detox and then go to [place] for inpatient rehab. Patient was calmer when I left. OBJECTIVE: Vital Signs 02/23/20 02/23/20 05:20 09:00 Temperature 97.6 F 98.1 F Pulse Rate 68 85 Respiratory 17 16 Rate Blood Pressure 117/78 130/70 O2 Sat by Pulse 97 97 Oximetry (%) PHYSICAL EXAM GENERAL: The patient is A&O x3, ciwa score 5 HEAD: Normal with no signs of trauma. EYES: PERRL, extraocular movements intact, sclera anicteric, conjunctiva clear. ENT: moist mucous membranes. LUNGS: Breath sounds equal, clear to auscultation bilaterally HEART: Regular rate and rhythm, S1, S2 ABDOMEN: Soft, nontender, nondistended EXTREMITIES: warm, well-perfused, no edema. NEUROLOGICAL: Normal speech, gait not observed. PSYCH: Depressed mood, expressed hopelessness SKIN: Warm, dry, normal turgor LABS Laboratory Results - last 24 hr 02/23/20 02/23/20 10:15 10:15 WBC 3.7 L RBC 4.60 Hgb 14.7 Hct 44.0 MCV 95.6 MCH 32.0 MCHC 33.5 RDW 13.7 Plt Count 155 MPV 10.2 Sodium 141 Potassium 4.5 Chloride 108 H Carbon Dioxide 28 Anion Gap 4 L BUN 6.2 L Creatinine 0.8 Est GFR (CKD-EPI)AfAm 116.56 Est GFR (CKD-EPI)NonAf 100.57 Random Glucose 91 Calcium 9.3 Phosphorus 2.6 Magnesium 2.3 Total Bilirubin 0.5 AST 123 H ALT 152 H Alkaline Phosphatase 81 Total Protein 7.3 Albumin 4.1 HOSPITAL COURSE: Patient 54 yo male with a PMHx of Bipolar Disorder, Alcohol Abuse, Seizure (Alcohol Withdrawal). He presented to the ED having been sent in by his psychiatrist Dr. Trujillo for Alcohol Intoxication and Detox. Patient expressed his Bipolar disorder has been uncontrolled and he has started drinking again. He completed 2 days of librium protocol. He was seen by psychiatrist at [facility]. Patient eloped without signing AMA form despite our conversation about the importance of his detox earlier in the day. Date of Admission:02/21/20 Date of Discharge: 02/23/20 Minutes to complete discharge: 35 Discharge Summary Problems reviewed: Yes Reason For Visit: ALCOHOL WITHDRAWAL SYNDROME, ALCOHOLIC - Instructions Referrals: Erendira Hurst [Primary Care Provider] - - Home Medications Comprehensive Discharge Medication List: Ambulatory Orders Lamotrigine [Lamictal -] 200 mg PO HS 05/29/19 Lamotrigine 50 mg PO DAILY 05/30/19 Folic Acid - 1 mg PO DAILY #30 tablet 06/02/19 Sennosides [Senna -] 1 tab PO BID #60 tablet 06/02/19 Thiamine HCl [Vitamin B1 -] 100 mg PO DAILY #30 tablet 06/02/19 Lamotrigine 100 mg PO AM 02/21/20 Chlordiazepoxide [Librium -] 25 mg PO TID 02/23/20 This patient is new to me today: Yes Date on this admission: 02/23/20 Emergency Visit: Yes ED Registration Date: 02/21/20 Care time: The patient presented to the Emergency Department on the above date and was hospitalized for further evaluation of their emergent condition. Critical Care patient: No - Discharge Referral Referred to [facility] Med P.C.: No ATTENDING PHYSICIAN STATEMENT I saw and evaluated the patient. I reviewed the resident's note and discussed the case with the resident. I agree with the resident's findings and plan as documented. SUBJECTIVE: OBJECTIVE: ASSESSMENT AND PLAN:
[2020-02-24] MEDS ORDERED: chlordiazePOXIDE HCL 10 MG CAPSULE PO SCH (05:00)
[2020-02-25] MEDS ORDERED: chlordiazePOXIDE HCL 10 MG CAPSULE PO ONE (05:00)
== END 2020-02-23 11:15 | disposition left against medical advice (07) | DRG 894 ==
LOC: JER 20:16 → JERBED 02-21 00:35 → J7W 02-21 03:40
PROVIDERS: ADMIT Internal Medicine; ATTEND Internal Medicine
PROC: HZ2ZZZZ Detoxification Services for Substance Abuse Treatment (ICD-10-PCS; principal; 2020-02-20)
DX: F10.239 Alcohol dependence with withdrawal, unspecified (principal); F10.229 Alcohol dependence with intoxication, unspecified; F31.9 Bipolar disorder, unspecified; G40.909 Epilepsy, unspecified, not intractable, without status epilepticus
CPT/HCPCS: 36415; 71045-TC-FY; 80053; 80307; 83735; 84100; 85027; 93005; 93010; 99285-25; U0003